=== PATIENT | male | born 1945 | race Caucasian/White ===

== ENCOUNTER 2019-02-13 10:23 | Emergency (ER) | payer MEDICARE ==
[~2019-02-13] VITALS: Ht 175.3 cm; Wt 81.8 kg
[2019-02-13] MEDS ORDERED: AMOX1TAB15 PO (10:32)
[2019-02-13 12:37] VITALS: BP 139/88
== END 2019-02-13 12:40 | disposition home or self-care (01) ==
LOC: EMS 10:27
DX: G89.18 Other acute postprocedural pain (principal); F03.90 Unspecified dementia, unspecified severity, without behavioral disturbance, psychotic disturbance, mood disturbance, and anxiety; M79.645 Pain in left finger(s); Z98.890 Other specified postprocedural states